=== PATIENT | female | born 1965 | race African-American/Black ===

== ENCOUNTER 2021-04-24 06:55 | Emergency (ER) | payer OTHER ==
[~2021-04-24] VITALS: Ht 157.5 cm; Wt 44.5 kg
--- NOTE | 2021-04-24 07:00 | NUR ---
PATIENT DOES NOT REMEMBER HER HOME MEDICATION AT THIS TIME.
--- NOTE | 2021-04-24 07:10 | NUR ---
Dr Bell at the bedside for MSE.
[2021-04-24] MEDS ORDERED: IPRATROPIUM BROMIDE 0.5 MG/2.5 ML NEBU NEB ONE (07:30)
[2021-04-24] MEDS ORDERED: ALBUTEROL SULFATE 2.5 MG/3 ML NEBU NEB ONE (07:30)
[2021-04-24] MEDS ORDERED: methylPREDNISolone SOD SUCC 125 MG/2 ML VIAL IV ONE (07:30)
[2021-04-24 07:56] LABS: HEMATOCRIT 33.8 % (31.2-41.9); MEAN CORPUSCULAR HEMOGLOBIN 26.7 uug (24.7-32.8); MEAN CORPUSCULAR VOLUME 81.4 fL (75.5-95.3); PLATELET COUNT (AUTO) 288 K/uL (179-408); POTASSIUM 3.2 mmol/L (3.5-5.1)
[2021-04-24] MEDS ORDERED: predniSONE 20 MG TABLET PO ONE (08:00)
[2021-04-24] MEDS ORDERED: predniSONE 50 MG TABLET ONE (08:08)
[2021-04-24] MEDS ORDERED: predniSONE 10 MG TABLET ONE (08:08)
[2021-04-24 08:13] LABS: BILIRUBIN,DIRECT 0.5 mg/dL (0.0-0.2); BILIRUBIN,TOTAL 0.8 mg/dL (0.2-1.0); TOTAL PROTEIN, SERUM 9.1 g/dL (6.4-8.2)
[2021-04-24] MEDS ORDERED: ALBUTEROL SULFATE 2.5 MG/3 ML NEBU ONE (08:17)
[2021-04-24] MEDS ORDERED: IPRATROPIUM BROMIDE 0.5 MG/2.5 ML NEBU ONE (08:17)
[2021-04-24] MEDS ORDERED: LOSA1TAB42 PO (09:43)
[2021-04-24] MEDS ORDERED: AMLO-212 PO (09:43)
[2021-04-24] MEDS ORDERED: PRED50TA PO (09:43)
[2021-04-24] MEDS ORDERED: BECL10.6 IH (09:43)
[2021-04-24] MEDS ORDERED: ALBU8.5H8 INH (09:43)
[2021-04-24 09:58] VITALS: BP 139/102
--- NOTE | 2021-04-24 10:24 | NUR ---
Patient discharged to home in stable condition. Written and verbal after care instructions given. Patient verbalizes understanding of instructions. Stressed follow up or return to ER for worsening s/s.
== END 2021-04-24 10:25 | disposition home or self-care (01) ==
LOC: ER 06:55
DX: J44.1 Chronic obstructive pulmonary disease with (acute) exacerbation (principal); I11.0 Hypertensive heart disease with heart failure; I50.20 Unspecified systolic (congestive) heart failure; R00.0 Tachycardia, unspecified; F17.210 Nicotine dependence, cigarettes, uncomplicated; F31.9 Bipolar disorder, unspecified; F20.9 Schizophrenia, unspecified
CPT/HCPCS: 36415; 71045; 80048; 80076; 83880; 84484; 85025; 85379; 93005; 94640; 99291; J7512 ×2; 70030-TC; A4663; J3590